=== PATIENT | female | born 1995 | race Caucasian/White ===

== ENCOUNTER 2018-11-01 07:16 | Emergency (ER) | payer BC ==
--- NOTE | 2018-11-01 07:40 | Emergency Department Record ---
History of Present Illness - General Chief complaint: Flank Pain Stated complaint: RT SIDED PAIN Time Seen by Provider: 11/01/18 07:30 Source: Patient Mode of Arrival: Ambulatory Limitations: No limitations - History of Present Illness Initial comments: The patient is here due to intermittent R flank pain for the last 3 hours. The pain woke her up from bed and has waxed and waned since. She did have mild nausea with it but no vomiting. She has no hx of similar problems and presently the pain has resolved. MD Complaint: Other Onset/Timin -: Hour(s) Radiation: R flank Severity: Moderate Severity scale (1-10): 6 Quality: Sharp Consistency: Constant Improves with: None Worsens with: None - Related Data Home Medications Medication Instructions Recorded Confirmed Last Taken Montelukast Sodium 10 mg PO DAILY 11/01/18 11/01/18 Unknown Norgestrel-Ethinyl Estradiol 1 tab PO DAILY 11/01/18 11/01/18 Unknown [Elinest-28 Tablet] Previous Rx's Medication Instructions Recorded Hydrocodone/Acetaminophen [[place] 1 - 2 each PO QID #12 tablet 11/01/18 5-325 Tablet] Tamsulosin HCl [Flomax] 0.4 mg PO DAILY #7 cap.er.24h 11/01/18 Allergies Allergy/AdvReac Type Severity Reaction Status Date / Time No Known Allergies Allergy Unverified 10/02/17 11:32 Travel Screening - Travel/Exposure Within Last 30 Days Have you traveled within the last 30 days?: No Review of Systems Constitutional: Denies: Chills, Fever Eyes: Denies: Eye discharge ENT: Denies: Congestion Respiratory: Denies: Cough Cardiovascular: Denies: Arrhythmia Endocrine: Denies: Fatigue Gastrointestinal: Reports: Abdominal pain, Nausea. Denies: Vomiting Genitourinary: Denies: Dysuria Musculoskeletal: Denies: Arthralgia Past Medical History - SOCIAL HISTORY Smoking Status: Never smoker Alcohol Use: None Drug Use: None - RESPIRATORY Hx Respiratory Disorders: Yes Hx Asthma: Yes (Allergen induced) - CARDIOVASCULAR Hx Cardio Disorders: No - NEURO Hx Neuro Disorders: No - GI Hx GI Disorders: No - Hx Genitourinary Disorders: No - ENDOCRINE Hx Endocrine Disorders: No - MUSCULOSKELETAL Hx Musculoskeletal Disorders: No - PSYCH Hx Psych Problems: No - HEMATOLOGY/ONCOLOGY Hx Hematology/Oncology Disorders: No Family Medical History Any Significant Family History?: No Physical Exam - General General Appearance: Alert, Oriented x3, Cooperative, No acute distress - Head Head exam: Atraumatic, Normocephalic, Normal inspection - Eye Eye exam: PERRL, EOMI - Neck Neck exam: Normal inspection, Full ROM. negative: Tenderness - Respiratory Respiratory exam: Normal lung sounds bilaterally. negative: Respiratory distress - Cardiovascular Cardiovascular Exam: Regular rate, Normal rhythm, Normal heart sounds - GI/Abdominal GI/Abdominal exam: Soft, Normal bowel sounds. negative: Guarding, Rebound, Rigid, Tenderness - Extremities Extremities exam: Normal inspection, Full ROM, Normal capillary refill. negative: Tenderness - Back Back exam: Reports: Normal inspection. Denies: CVA tenderness (R), CVA tenderness (L) - Neurological Neurological exam: Alert, Normal gait. negative: Abnormal gait, Motor sensory deficit Course Vital Signs 11/01/18 07:24 Temperature 98.4 F Pulse Rate 66 Respiratory 16 Rate Blood Pressure 138/93 Pulse Ox 98 - Reevaluation(s) Reevaluation #1: The patient is doing a lot better at this time. She is pain free presently and resting comfortably. I did discuss the CT findings of a 3 mm R ureter stone at the UPJ. It most likely is intermittently blocking due to the pain resolving. The patient is from [place] and is going back there tonight so she is to see a Urologist there when possible. 11/01/18 09:45 Medical Decision Making - Data Complexity MDM Data: Labs Ordered and/or Reviewed, X-Ray Ordered and/or Reviewed - Lab Data Result diagrams: 11/01/18 07:45 11/01/18 07:45 - Radiology Data Radiology results: Report reviewed (CT: 3 mm R UPJ stone with mild hydro.) Disposition Disposition: Discharge Clinical Impression: Renal colic on right side Disposition: Home, Self-Care Condition: (2) Stable Instructions: Renal Colic (ED) Additional Instructions: Please take the medicines as directed and drink plenty of fluids. Please see a Urologist in [place] this week. Return to the ER for any worsening pain, or any fever or vomiting. Prescriptions: Hydrocodone/Acetaminophen [[place] 5-325 Tablet] 1 - 2 each PO QID #12 tablet Tamsulosin HCl [Flomax] 0.4 mg PO DAILY #7 cap.er.24h Forms: Patient Portal Access Time of Disposition: 09:50 Quality - Quality Measures Quality Measures: N/A - Blood Pressure Screening View Details: Yes Does Patient Have Any of the Following: No Blood Pressure Classification: Hypertensive Reading Systolic Measurement: 138 Diastolic Measurement: 93 Screening for High Blood Pressure: < First Hypertensive BP, F/U Documented > [ [id number]] First Hypertensive Follow-up Interventions: Referral to alternative/primary care provider.
[2018-11-01 07:54] LABS: HEMOGLOBIN 12.2 gm/dl (11.6-16.0); MEAN CELL VOLUME 75.8 fl (81-97); MEAN CORPUSCULAR HEMOGLOBIN 23.1 pg (27-33); MEAN CORPUSCULAR HGB CONC 30.5 g/dl (32-36); MEAN PLATELET VOLUME 9.8 fl (7.4-10.4); PLATELET COUNT 467 K/uL (130-400); RED BLOOD COUNT 5.28 M/uL (3.80-5.40); RED CELL DISTRIBUTION WIDTH 16.5 % (11.5-14.5); WHITE BLOOD COUNT W/O DIFF 9.9 K/uL (4.2-12.2)
[2018-11-01 08:06] LABS: PLATELET ESTIMATE NORMAL (NORMAL)
[2018-11-01 08:07] LABS: BLOOD UREA NITROGEN 10 mg/dL (6-20); CREATININE 0.6 mg/dL (0.5-0.9); EST GLOMERULAR FILTRATION RATE > 60 mL/min
[2018-11-01 08:08] LABS: TOTAL PROTEIN 7.4 g/dL (6.6-8.7)
[2018-11-01 08:10] LABS: GLUCOSE,RANDOM 104 mg/dL (74-109)
[2018-11-01 08:12] LABS: ALB/GLOB RATIO 1.2 (1.1-1.8); ALT/SGPT 25 U/L (<33); AST/SGOT 20 U/L (10.0-35.0)
[2018-11-01 08:13] LABS: ALKALINE PHOSPHATASE 94 U/L (45-87)
[2018-11-01 08:19] LABS: URINE APPEARANCE CLOUDY; URINE BILIRUBIN SMALL (NEGATIVE); URINE BLOOD LARGE (NEGATIVE); URINE COLOR BROWN; URINE GLUCOSE (UA) NEGATIVE (NEGATIVE); URINE KETONE NEGATIVE (NEGATIVE); URINE LEUKOCYTE ESTERASE NEGATIVE (NEGATIVE); URINE NITRITE NEGATIVE (NEGATIVE)
[2018-11-01 08:22] LABS: HCG,QUALITATIVE URINE NEGATIVE (NEGATIVE); URINE WBC NONE SEEN (0-2/hpf)
[2018-11-01] MEDS ORDERED: KETOROLAC 30 MG/ML VIAL IVP ONE (08:25)
--- NOTE | 2018-11-02 08:24 | CT SCAN REPORT ---
EXAM: NONCONTRAST CT OF THE ABDOMEN AND PELVIS HISTORY: RIGHT FLANK PAIN. TECHNIQUE: Noncontrast CT of the abdomen and pelvis was obtained. Comparison: None. FINDINGS: The lung bases are clear. Unremarkable noncontrast appearance of the liver, gallbladder, spleen, adrenal glands, and pancreas. Mild right hydronephrosis with a 3 mm calculus near the right ureteropelvic junction. No additional calculi are detected. Unremarkable appearance of the urinary bladder. No focal colonic thickening or inflammatory changes. Normal appendix. The stomach and small bowel are nondilated. No free air or free fluid. No focal adnexal abnormalities are detected. The abdominal aorta is nondilated. No acute osseous findings. IMPRESSION: RIGHT URETEROPELVIC JUNCTION 3 MM CALCULUS RESULTING IN MILD RIGHT HYDRONEPHROSIS. JOB [facility]BER: [id number] [facility]
== END 2018-11-01 10:00 | disposition home or self-care (01) ==
LOC: ER 07:16
DX: N13.2 Hydronephrosis with renal and ureteral calculous obstruction (principal); R11.0 Nausea
CPT/HCPCS: 99284 ×2; 96374; 80053; 81001; 81025; 85027; 74176; J1885